=== PATIENT | male | born 1965 | race Caucasian/White ===

== ENCOUNTER 2017-10-05 23:51 | Observation (INO) | payer OTHER ==
[~2017-10-05] VITALS: Ht 180.3 cm; Wt 125.7 kg
[2017-10-06 00:18] LABS: HEMATOCRIT 44.7 % (38.0-50.0); HEMOGLOBIN 15.8 G/DL (12.5-16.6); MCH 31.9 PG (29.0-34.0); MCHC 35.3 G/DL (30.0-36.0); MCV 90.3 FL (86-99); PLATELET COUNT 167 K/uL (156-360); RBC DIS.WIDTH-CV 12.4 % (11.8-14.6); RBC DIS.WIDTH-SD 40.9 % (39-53); RED BLOOD COUNT 4.95 M/uL (4.00-5.50); WHITE BLOOD COUNT 7.4 K/uL (4.1-10.2)
[2017-10-06 00:26] LABS: CHLORIDE 108 mEq/L (99-109); POTASSIUM 4.1 mEq/L (3.7-5.4); SODIUM 139 mEq/L (136-147)
[2017-10-06 00:28] LABS: GLUCOSE 116 mg/dL (70-99)
[2017-10-06 00:32] LABS: GFR ESTIMATE (CALCULATED) > 59 mL/min/ (58.99-99999)
[2017-10-06 00:33] LABS: UREA NITROGEN (BUN) 22 mg/dL (9-23)
[2017-10-06 00:39] LABS: TROP-I INTERPRETATION NEGATIVE; TROPONIN-I < 0.01 ng/mL (0.0-0.30)
[2017-10-06 01:48] LABS: ALBUMIN 4.2 g/dL (3.2-4.8)
[2017-10-06 01:51] LABS: TOTAL PROTEIN 7.1 g/dL (6.4-8.3)
[2017-10-06 01:53] LABS: TOTAL BILIRUBIN 0.5 mg/dL (0.0-1.0)
[2017-10-06 01:54] LABS: ALKALINE PHOSPHATASE 93 IU/L (3-129)
[2017-10-06 01:56] LABS: AST (GOT) 15 IU/L (2-34); DIRECT BILIRUBIN 0.2 mg/dL (0.0-0.3)
[2017-10-06 01:57] LABS: ALT (GPT) 28 IU/L (3-49); LIPASE 14 U/L (1.0-51.0)
[2017-10-06 06:38] LABS: TROP-I INTERPRETATION NEGATIVE; TROPONIN-I < 0.01 ng/mL (0.0-0.30)
[2017-10-06 06:46] LABS: HDL CHOLESTEROL 29 MG/DL (Desirable>=40); LDL CHOLESTEROL 118 mg/dL (Desirable<100); NON-HDL CHOLESTEROL 149 mg/dL (Desirable<160); TOTAL CHOLESTEROL 178 mg/dL (Desirable<200); TRIGLYCERIDES 156 MG/DL (Normal: <150)
[2017-10-06 12:05] LABS: TROP-I INTERPRETATION NEGATIVE; TROPONIN-I < 0.01 ng/mL (0.0-0.30)
[2017-10-06 13:18] VITALS: BP 141/96
[2017-10-06] MEDS ORDERED: NORVASC5 MG PO (16:54)
[2017-10-06] MEDS ORDERED: ATORVASTATIN CA80 MG PO (16:54)
[2017-10-06] MEDS ORDERED: DIOVAN160 MG PO (20:24)
[2017-10-06] MEDS ORDERED: LOPRESSOR25 MG PO (20:24)
[2017-10-06] MEDS ORDERED: LIPITOR80 MG PO (20:24)
[2017-10-06 20:32] VITALS: BP 163/90
== END 2017-10-06 20:46 | disposition home or self-care (01) ==
LOC: EME 23:51 → EDOF 10-06 02:04 → ENRESERV 10-06 02:05 → 5WEST 10-06 12:14 → ENRESERV 10-06 12:15 → CANRESERV 10-06 12:16 → ENRESERV 10-06 12:36 → EDOF 10-06 12:56 → 5WEST 10-06 13:02
PROVIDERS: Physician Assistant Medical
DX: R07.9 Chest pain, unspecified (principal); I16.0 Hypertensive urgency; I10 Essential (primary) hypertension; E78.5 Hyperlipidemia, unspecified; R20.0 Anesthesia of skin; M79.602 Pain in left arm; G89.29 Other chronic pain; M51.36 Other intervertebral disc degeneration, lumbar region; Z79.82 Long term (current) use of aspirin; Z79.01 Long term (current) use of anticoagulants; E66.9 Obesity, unspecified; Z68.39 Body mass index [BMI] 39.0-39.9, adult; Z82.49 Family history of ischemic heart disease and other diseases of the circulatory system; Z83.3 Family history of diabetes mellitus; Z80.1 Family history of malignant neoplasm of trachea, bronchus and lung; Z82.0 Family history of epilepsy and other diseases of the nervous system
CPT/HCPCS: 70140; 71046; 72141; 80048; 80061; 80076; 83690; 84484; 85027; 85379; 93005; 99281; 99285; G0378; J1650

== ENCOUNTER 2017-10-10 17:31 | Emergency (ER) | payer OTHER ==
[~2017-10-10] VITALS: Ht 180.3 cm; Wt 126.2 kg
[~2017-10-10 17:31] MED LIST: ATORVASTATIN CA80 MG PO; DIOVAN160 MG PO; LIPITOR80 MG PO; LOPRESSOR25 MG PO; NORVASC5 MG PO
[2017-10-10 18:17] LABS: HEMATOCRIT 46.2 % (38.0-50.0); HEMOGLOBIN 16.6 G/DL (12.5-16.6); MCH 32.2 PG (29.0-34.0); MCHC 35.9 G/DL (30.0-36.0); MCV 89.5 FL (86-99); PLATELET COUNT 165 K/uL (156-360); RBC DIS.WIDTH-SD 39.1 % (39-53); RED BLOOD COUNT 5.16 M/uL (4.00-5.50); WHITE BLOOD COUNT 9.6 K/uL (4.1-10.2)
[2017-10-10 18:30] LABS: CHLORIDE 107 mEq/L (99-109); POTASSIUM 4.4 mEq/L (3.7-5.4); SODIUM 141 mEq/L (136-147)
[2017-10-10 18:31] LABS: GLUCOSE 108 mg/dL (70-99)
[2017-10-10 18:35] LABS: CREATININE 1.1 mg/dL (0.6-1.3); GFR ESTIMATE (CALCULATED) > 59 mL/min/ (58.99-99999)
[2017-10-10 18:36] LABS: UREA NITROGEN (BUN) 21 mg/dL (9-23)
[2017-10-10 18:44] LABS: TROP-I INTERPRETATION NEGATIVE; TROPONIN-I < 0.01 ng/mL (0.0-0.30)
[2017-10-10 21:05] VITALS: BP 145/88
== END 2017-10-10 21:40 | disposition home or self-care (01) ==
LOC: EME 17:31
DX: R07.9 Chest pain, unspecified (principal); I10 Essential (primary) hypertension
CPT/HCPCS: 71046; 80048; 84484; 85027; 93005; 99281; 99285